=== PATIENT | female | born 2000 | race Caucasian/White ===

== ENCOUNTER 2022-09-27 09:32 | Emergency (ER) | payer MEDICAID ==
[~2022-09-27] VITALS: Ht 167.6 cm; Wt 59.0 kg
[~2022-09-27 09:32] MED LIST: NITR-87 PO
[2022-09-27] MEDS ORDERED: CYCLOBENZAPRINE 10MG TABLET PO ONE (10:15)
[2022-09-27] MEDS ORDERED: KETOROLAC 60MG/2ML VIAL IM ONE (10:15)
[2022-09-27] MEDS ORDERED: CYCL5TAB PO (13:47)
[2022-09-27] MEDS ORDERED: NAPR500T7 PO (13:47)
[2022-09-27 14:47] VITALS: BP 136/84
== END 2022-09-27 14:53 | disposition home or self-care (01) ==
LOC: ER 09:51
DX: S39.012A Strain of muscle, fascia and tendon of lower back, initial encounter (principal); S29.012A Strain of muscle and tendon of back wall of thorax, initial encounter; V03.90XA Pedestrian on foot injured in collision with car, pick-up truck or van, unspecified whether traffic or nontraffic accident, initial encounter; Y93.01 Activity, walking, marching and hiking; Y92.480 Sidewalk as the place of occurrence of the external cause
CPT/HCPCS: 72070; 72100; 81025; 96372; 99284; J1885

== ENCOUNTER 2025-05-10 14:43 | Emergency (ER) | payer MEDICAID ==
[~2025-05-10] VITALS: Ht 154.9 cm; Wt 58.9 kg
[~2025-05-10 14:43] MED LIST changes: +CYCL5TAB3 PO; +NAPR-1486 PO
[2025-05-10 14:47] VITALS: O2SAT 100
[2025-05-10] MEDS: ACETAMINOPHEN 500MG TABLET PO ONE (15:51)
[2025-05-10 18:02] VITALS: BP 114/76; PULSE 82; RESP 18; TEMP 37.1; O2SAT 98
== END 2025-05-10 18:06 | disposition home or self-care (01) ==
LOC: ER 14:43
DX: R51.9 Headache, unspecified (principal); R20.2 Paresthesia of skin
CPT/HCPCS: 81025; 99284